=== PATIENT | female | born 1955 | race Caucasian/White ===

== ENCOUNTER → 2016-05-22 | Outpatient (CLI) | payer BC, MEDICAID ==
[~2016-05-22] MED LIST: ASPI-992 PO; AZAT50TA PO; AZTH50T PO; BACL10TA PO; BSC10SU PR; CALC-80 PO; CHOL100061 PO; CIPR-225 PO; ENAL20TA PO; ESCI10TA48 PO; ESCI10TA55 PO; ESCT10T PO; IBUP-30 PO; Ibuprofen PO; MAGN100T3 PO; MAGN400C PO; MAGNESIUM WITH ZINC PO; MTR500T PO; PHEN-633 PO; PHEN100C11 PO; POTA99TA7 PO; TRIM100T PO; TRIM100T7 PO
--- OUTSIDE RECORDS SUMMARY | 2016-05-22 09:15 | XMS REPORT | Continuity of Care Document ---
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 If you do not see the information that you expected, contact Release of Information in the Health Information Management department at [phone] for further assistance in locating additional records.[facility] Active Allergies and Adverse Reactions No Known Allergies Current Medications Prescription Sig. Disp. Refills Start End Date Status Date enalapril (VASOTEC) 20 mg Take 20 mg by mouth Active tablet daily. phenytoin SR (DILANTIN) Take 1 Cap by mouth three 90 Cap 0 10/06/19 Active 100 mg capsule times daily. 15 AA9/A-CARNITIN/DEX/COCOA/ Take 800 mg by mouth at Active HC128 (SENTRA PM PO) bedtime daily. azaTHIOprine (IMURAN) 50 Take one tab three times 270 Tab 3 06/12/19 Active mg tablet daily 16 escitalopram oxalate Take 1 Tab by mouth 90 Tab 3 06/12/19 Active (LEXAPRO) 10 mg tablet daily. 16 baclofen (LIORESAL) 10 mg Take 1 Tab by mouth three 270 Tab 3 Active tablet times daily. 16 hyoscyamine (ANASPAZ; Place 125 mcg under Active NULEV; SYMAX FASTABS; tongue twice daily as HYOMAX-FT; ED-SPAZ; needed for Cramps. OSCIMIN) 0.125 mg rapid dissolve tablet potassium Active magnesium oxide (MAG-OX) Take 400 mg by mouth Active 400 mg tablet daily. cholecalciferol (VITAMIN Take 1,000 Units by mouth Active D-3) 1,000 units tablet daily. Active Problems Problem Noted Date MS (multiple sclerosis) ([facility] 01/26/2012 Overview: Multiple Sclerosis Subtype: Secondary progressive Symptom onset: 1975 Date of Diagnosis: 1981 Prior Medication failures: none Last MRI : - not available L ast Assessment & Plan: We had a long discussion about her working and whether she wants to stop yet. I don't think she is quite ready to stop working. 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 Continue Azathioprine CBc, CMP Continue Baclofen Trigeminal neuralgia 01/26/2012 Overview: Associated with MS Right sided, well controlled with phenytoin L ast Assessment & Plan: Stable on varying doses of phenytoin Continue Phenytoin Social History Tobacco Use Types Packs/Day Years Used Date Never Smoker Alcohol Use Drinks/Week oz/Week Comments No 0 Standard 0.0 drinks or equivalent Last Filed Vital Signs Vital Sign Reading Time Taken Blood Pressure 125/77 01/25/2016 12:30 PM CDT Pulse 85 01/25/2016 12:30 PM CDT Temperature - - Respiratory Rate - - Height 1.676 m (5' 5.98") 01/25/2016 12:30 PM CDT Weight 88.451 kg (195 lb) 01/25/2016 12:30 PM CDT Body Mass Index 31.49 01/25/2016 12:30 PM CDT Oxygen Saturation - - Plan of Care Date Type Specialty Providers Description 07/09/2016 Appointment Neurology Vicki Caal MD [address] [facility] [address] [place] [address] [phone] (Fax) Health Maintenance Due Date Last Done Comments Hepatitis C Screening 1955 Physical (Comprehensive) 11/27/1962 Exam Pertussis Vaccine 11/27/1966 Tetanus Vaccine 11/27/1972 Cervical Cancer Screening 11/27/1976 Breast Cancer Screening 1995 Colorectal Cancer 11/27/2005 Screening Shingles Vaccine 2015 Influenza Vaccine 12/27/2015 Results from Last 3 Months Not on file
--- NOTE | 2016-05-22 19:17 | Diagnostic Imaging Report ---
EXAMINATION: Digital mammogram bilateral screening. INDICATION: Screening. COMPARISON: This study was compared to the prior exams of 05/14/2015, 05/11/2014, and 05/09/2013. At this time, there are no current complaints. This exam was technically difficult to perform as the patient is in a wheelchair. The current study was also evaluated with a Computer Aided Detection (CAD) system. FINDINGS: The fibroglandular tissue in both breasts is heterogeneously dense. This does limit the sensitivity of this exam. When compared to the previous study, there does not appear to have been any significant change. There is no primary or secondary sign of malignancy noted. IMPRESSION: There is no evidence of malignancy. ACR BI-RADS Category 1: Negative. Result letter will be mailed to the patient. Note: At least 10% of breast cancer is not imaged by mammography. Dictated by: Dictated on workstation # [id number]
== END ==
LOC: RAD 09:12
PROVIDERS: ATTEND Family Medicine
DX: Z12.31 Encounter for screening mammogram for malignant neoplasm of breast (principal)

== ENCOUNTER → 2017-05-26 | Outpatient (CLI) | payer BC, MEDICAID ==
--- NOTE | 2017-05-26 11:56 | Diagnostic Imaging Report ---
INDICATION: Routine screening. Comparison: Comparison is made with prior exams from 05/22/2016 and 05/14/2015. The current study was also evaluated with a Computer Aided Detection (CAD) system. Findings: Moderate parenchymal heterogeneity and increased density is noted, limiting the sensitivity of mammography. There are scattered benign-appearing calcifications throughout both breasts. No dominant mass or malignant-appearing microcalcifications are seen. The axillae are unremarkable. Impression: BI-RADS category 2 No mammographic features suspicious for malignancy are identified. ACR BI-RADS Category 2: Benign findings. Result letter will be mailed to the patient. Note: At least 10% of breast cancer is not imaged by mammography. Dictated on workstation # [id number]
== END ==
LOC: RAD 08:02
PROVIDERS: ATTEND Nurse Practitioner Family
DX: Z12.31 Encounter for screening mammogram for malignant neoplasm of breast (principal)
CPT/HCPCS: 77067

== ENCOUNTER → 2017-09-03 | Outpatient (CLI) | payer BC, MEDICAID ==
[2017-09-03 14:26] LABS: BASOPHILS % (AUTO) 0 % (0-10); EOSINOPHILS # (AUTO) 0.1 10^3/uL (0.0-0.3); EOSINOPHILS % (AUTO) 1 % (0-10); HEMATOCRIT 42 % (35-52); HEMOGLOBIN 14.8 G/DL (11.5-16.0); LYMPHOCYTES # (AUTO) 1.4 X 10^3 (1.0-4.0); LYMPHOCYTES % (AUTO) 21 % (12-44); MEAN CORPUSCULAR HEMOGLOBIN 35 PG (25-34); MEAN CORPUSCULAR HGB CONC 35 G/DL (32-36); MEAN CORPUSCULAR VOLUME 99 FL (80-99); MEAN PLATELET VOLUME 9.9 FL (7.4-10.4); MONOCYTES # (AUTO) 0.6 X 10^3 (0.0-1.0); MONOCYTES % (AUTO) 9 % (0-12); NEUTROPHILS # (AUTO) 4.7 X 10^3 (1.8-7.8); NEUTROPHILS % (AUTO) 69 % (42-75); PLATELET COUNT 249 10^3/uL (130-400); RED BLOOD COUNT 4.26 10^6/uL (4.35-5.85); WHITE BLOOD COUNT 6.8 10^3/uL (4.3-11.0)
--- NOTE | 2017-09-03 14:31 | Diagnostic Imaging Report ---
CLINICAL INDICATION: Patient has muscular dystrophy, in a wheelchair. Patient has left lower extremity swelling and tender calf. COMPARISON: None. PROCEDURE: Real-time left lower extremity venous Doppler duplex evaluation is performed from the inguinal region through the popliteal fossa. The calf venous structures are also evaluated. FINDINGS: The deep venous system is well visualized and is easily compressible. There is no evidence of deep venous thrombosis, valvular incompetence, or significant collateral circulation. IMPRESSION: There is no ultrasound Doppler evidence of deep venous thrombosis in the left lower extremity. Dictated by: Dictated on workstation # [id number]
== END ==
LOC: RAD 12:41
PROVIDERS: ATTEND Nurse Practitioner Family
DX: G71.0 Muscular dystrophy (principal); R22.42 Localized swelling, mass and lump, left lower limb
CPT/HCPCS: 36415; 85025